=== PATIENT | female | born 1980 | race Two or more races ===

== ENCOUNTER 2021-05-08 12:27 | Emergency (ER) | payer OTHER ==
[~2021-05-08] VITALS: Ht 154.9 cm; Wt 90.7 kg
[2021-05-08] MEDS ORDERED: CIPRO500 MG PO (15:53)
== END 2021-05-08 16:16 | disposition home or self-care (01) ==
LOC: ER 12:27
DX: R10.32 Left lower quadrant pain (principal); R10.31 Right lower quadrant pain; R30.0 Dysuria